=== PATIENT | male | born 1955 | race Caucasian/White ===

== ENCOUNTER → 2020-06-29 | Outpatient (CLI) | payer OTHER ==
[~2020-06-29] MED LIST: FLORASTOR250 MG PO; NORCO 5-325 TA1 EACH PO; ZOFRAN ODT 4 MG4 MG SL
== END ==
LOC: KOH-I 10:51
DX: Z12.2 Encounter for screening for malignant neoplasm of respiratory organs (principal); F17.210 Nicotine dependence, cigarettes, uncomplicated; R91.1 Solitary pulmonary nodule
CPT/HCPCS: 71271

== ENCOUNTER → 2020-08-01 | Outpatient (CLI) | payer OTHER | LOC: KOH-I 08:57 | DX: R91.1 Solitary pulmonary nodule (principal) | CPT/HCPCS: 71250 ==

== ENCOUNTER → 2021-02-07 | Outpatient (CLI) | payer OTHER | LOC: KOH-I 08:39 | DX: R91.1 Solitary pulmonary nodule (principal) | CPT/HCPCS: 71250 ==

== ENCOUNTER 2021-07-09 02:25 | Inpatient (IN) | payer OTHER ==
[~2021-07-09] VITALS: Ht 180.3 cm; Wt 97.1 kg
[2021-07-09 02:42] LABS: HEMOGLOBIN 14.5 gm/dl (14.0-17.5); RED BLOOD COUNT 4.58 M/UL (4.20-5.50); WHITE BLOOD COUNT 12.1 K/UL (4.5-11.0)
[2021-07-09 03:11] LABS: BUN/CREATININE RATIO 16 (0-10)
[2021-07-09] MEDS ORDERED: MELOXICAM15 MG PO (05:47)
[2021-07-09] MEDS ORDERED: ISOSORBIDE MONO30 MG PO (05:48)
[2021-07-09] MEDS ORDERED: ATORVASTATIN CA80 MG PO (05:48)
[2021-07-09] MEDS ORDERED: FINASTERIDE5 MG PO (05:49)
[2021-07-09] MEDS ORDERED: ESOMEPRAZOLE MA20 MG PO (05:50)
[2021-07-09] MEDS ORDERED: BENAZEPRIL HCL10 MG PO (05:51)
[2021-07-09] MEDS ORDERED: FLOMAX 0.4 MG0.4 MG PO (05:52)
[2021-07-09 07:06] LABS: HEMOGLOBIN 13.9 gm/dl (14.0-17.5); RED BLOOD COUNT 4.36 M/UL (4.20-5.50); WHITE BLOOD COUNT 14.4 K/UL (4.5-11.0)
[2021-07-09 07:40] LABS: BUN/CREATININE RATIO 25 (0-10)
[2021-07-09] MEDS ORDERED: ECOTRIN81 MG PO (10:25)
[2021-07-09] MEDS ORDERED: STIOLTO RESPIMAT4 GM INH (10:29)
[2021-07-09] MEDS ORDERED: PROAIR HFA8.5 GM INH (10:30)
[2021-07-09 15:21] LABS: HEMOGLOBIN 13.9 gm/dl (14.0-17.5); RED BLOOD COUNT 4.39 M/UL (4.20-5.50); WHITE BLOOD COUNT 14.1 K/UL (4.5-11.0)
[2021-07-09 15:40] LABS: BUN/CREATININE RATIO 24 (0-10)
[2021-07-10 05:10] LABS: RED BLOOD COUNT 4.45 M/UL (4.20-5.50)
[2021-07-10 05:41] LABS: BUN/CREATININE RATIO 27 (0-10)
[2021-07-10 07:47] LABS: ADENOVIRUS F 40/41 Not Detected (Negative); ASTROVIRUS Not Detected (Negative); CAMPYLOBACTER Not Detected (Negative); CRYPTOSPORIDIUM Not Detected (Negative); E.COLI 0157 Not Detected (Negative); ENTAMOEBA HISTOLYTICA Not Detected (Negative); ENTEROAGGREGATIVE E.COLI (EAEC Not Detected (Negative); ENTEROPATHOGENIC E.COLI (EPEC) Not Detected (Negative); ENTEROTOXIGENIC E.COLI (ETEC) Not Detected (Negative); GIARDIA LAMBLIA Not Detected (Negative); NOROVIRUS GI/GII Not Detected (Negative); PLESIOMONAS SHIGELLOIDES Not Detected (Negative); ROTOVIRUS A Not Detected (Negative); SALMONELLA Not Detected (Negative); SAPOVIRUS Not Detected (Negative); SHIG/ENTEROINVAS.ECOLI (EIEC) Not Detected (Negative); SHIGA-LIK TOX.PRO.E.COLI (STEC Not Detected (Negative); VIBRIO Not Detected (Negative); VIBRIO CHOLERAE Not Detected (Negative); YERSINIA ENTEROCOLITICA Not Detected (Negative)
[2021-07-11 04:11] LABS: HEMOGLOBIN 12.6 gm/dl (14.0-17.5)
[2021-07-11 04:13] LABS: RED BLOOD COUNT 3.99 M/UL (4.20-5.50); WHITE BLOOD COUNT 13.4 K/UL (4.5-11.0)
[2021-07-11 04:37] LABS: BUN/CREATININE RATIO 20 (0-10)
[2021-07-12 02:10] LABS: HEMOGLOBIN 13.1 gm/dl (14.0-17.5); RED BLOOD COUNT 4.19 M/UL (4.20-5.50); WHITE BLOOD COUNT 12.7 K/UL (4.5-11.0)
[2021-07-12 02:32] LABS: BUN/CREATININE RATIO 14 (0-10)
[2021-07-12] MEDS ORDERED: LOPRESSOR 25 MG25 MG PO (09:43)
[2021-07-12] MEDS ORDERED: BRILINTA 90 MG90 MG PO (09:44)
[2021-07-12] MEDS ORDERED: LISINOPRIL10 MG PO (09:46)
== END 2021-07-12 10:53 | disposition home or self-care (01) | DRG 280 ==
LOC: ER1 02:25 → CDU 02:37 → CCU 05:06 → PROG CARE 07-11 14:51
PROVIDERS: Family Medicine; Internal Medicine; ADMIT Internal Medicine Interventional Cardiology
PROC: B2111ZZ Fluoroscopy of Multiple Coronary Arteries using Low Osmolar Contrast (ICD-10-PCS; principal; 2021-07-09)
PROC: [UNRECOGNIZED PROCEDURE] (principal; 2021-07-09)
PROC: 3E033XZ Introduction of Vasopressor into Peripheral Vein, Percutaneous Approach (ICD-10-PCS; 2021-07-09)
PROC: B24BZZZ Ultrasonography of Heart with Aorta (ICD-10-PCS; 2021-07-09)
DX: I21.19 ST elevation (STEMI) myocardial infarction involving other coronary artery of inferior wall (principal); J96.01 Acute respiratory failure with hypoxia; R57.1 Hypovolemic shock; I25.10 Atherosclerotic heart disease of native coronary artery without angina pectoris; Z20.822 Contact with and (suspected) exposure to COVID-19; F17.210 Nicotine dependence, cigarettes, uncomplicated; J44.9 Chronic obstructive pulmonary disease, unspecified; K21.9 Gastro-esophageal reflux disease without esophagitis; E78.5 Hyperlipidemia, unspecified; D72.828 Other elevated white blood cell count; I95.9 Hypotension, unspecified; I10 Essential (primary) hypertension; I08.1 Rheumatic disorders of both mitral and tricuspid valves; Z95.1 Presence of aortocoronary bypass graft; Z82.49 Family history of ischemic heart disease and other diseases of the circulatory system; Z98.890 Other specified postprocedural states; Z79.01 Long term (current) use of anticoagulants; Z79.82 Long term (current) use of aspirin
CPT/HCPCS: ECHO; 36415; 71045; 80048; 80053; 80061; 81001; 82550; 82553; 83036; 83540; 83550; 83735; 83880; 84100; 84484; 84550; 85025; 85027; 85347; 85610; 85730; 87040; 87086; 87507; 92920; 93005; 93306; 94640; 94664; 94760; 96374; 96375; 97161; 99152; 99153; 99285; C1725; C1757; C1769; C1887; C9113; J0461; J1170; J1200; J1644; J2250; J2370; J2405; J2930; J3010; J3475; J7030; J7040; J7050; Q9965; U0002